=== PATIENT | male | born 1990 | race Caucasian/White ===

== ENCOUNTER 2024-05-10 11:23 | Emergency (ER) | payer OTHER | END 2024-05-10 12:57 | disposition home or self-care (01) | LOC: DL.ED 11:23 | DX: S09.90XA Unspecified injury of head, initial encounter (principal); F17.210 Nicotine dependence, cigarettes, uncomplicated; Z88.0 Allergy status to penicillin; W19.XXXA Unspecified fall, initial encounter | CPT/HCPCS: 70450; 99283 ==